=== PATIENT | female | born 1990 | race Caucasian/White ===

== ENCOUNTER → 2019-06-12 | Outpatient (CLI) | payer OTHER ==
[~2019-06-12] MED LIST: ALBU90OI61 INH; AZIT250 PO; CIPR500 PO; CITA20 PO; CLON.1; Catapres0.1 MG PO; Cyclobenzaprine5 MG PO; DOXY100T53 PO; HYDACE5 PO; LIDO5TP TOP; LITH300ER PO; LOPE2C PO; Lexapro 10 mg T10 MG PO; Lexapro 2020 MG PO; MONO-LINYAH1 EACH PO; MULTI-DAY PLUS1 EACH; OTC MEDS; POTCHL20ER PO; PRED10 PO; PROM25 PO; QUET25 PO; SULTRIDS PO; Verotin-Gr Cap1 EACH PO; [UNRECOGNIZED DRUG - OTHER] PO
[2019-06-18 23:06] LABS: CHLAMYDIA BY NAA Negative (Negative); GONOCOCCUS BY NAA Negative (Negative); HPV 16 Negative (Negative); HPV 18 Negative (Negative); HPV OTHER HR TYPES Negative (Negative); TRICH VAG BY NAA Negative (Negative)
== END | disposition home or self-care (01) ==
LOC: LAB 10:00 → LAB SHORT 10:00
PROVIDERS: Obstetrics & Gynecology
DX: Z01.419 Encounter for gynecological examination (general) (routine) without abnormal findings (principal)
CPT/HCPCS: 87491; 87591; 87624; 87661; G0123

== ENCOUNTER → 2019-08-01 | Outpatient (CLI) | payer OTHER ==
[2019-08-01 18:19] LABS: Bilirubin, Urine Neg (Neg); Blood, Urine 4+ (Neg); Glucose Qualitative, Urine Neg (Neg); Ketones, Urine Neg (Neg); Leukocyte Esterase, Urine 1+ (Neg); Nitrite, Urine Neg (Neg); Protein, Urine Neg (Neg); Specific Gravity, Urine 1.005 (1.003-1.022); Urobilinogen, Urine NORM (Normal)
[2019-08-01 18:56] LABS: Appearance, Urine Clear (Clear); Color, Urine Yellow (P-Yellow)
[2019-08-01 19:11] LABS: Bacteria Few /hpf; Squamous Epithelial Cells Few /hpf (Few)
== END | disposition home or self-care (01) ==
LOC: LAB SHORT 16:03 → LAB 16:03
PROVIDERS: Family Medicine
DX: N39.0 Urinary tract infection, site not specified (principal)
CPT/HCPCS: 81001; 87077; 87086; 87186

== ENCOUNTER → 2020-04-23 | Outpatient (CLI) | payer OTHER ==
[2020-04-24 08:48] LABS: Candida species (DNA Probe) Negative (NEGATIVE); G. vaginalis (DNA Probe) Positive (NEGATIVE); T. vaginalis (DNA Probe) Negative (NEGATIVE)
== END | disposition home or self-care (01) ==
LOC: LAB 11:00 → LAB SHORT 11:00
PROVIDERS: Nurse Practitioner Family
DX: R35.0 Frequency of micturition (principal); N89.8 Other specified noninflammatory disorders of vagina
CPT/HCPCS: 87086; 87480; 87510; 87660

== ENCOUNTER → 2020-08-25 | Outpatient (CLI) | payer OTHER ==
[2020-08-26 09:49] LABS: Candida species (DNA Probe) Negative (NEGATIVE); G. vaginalis (DNA Probe) Negative (NEGATIVE); T. vaginalis (DNA Probe) Negative (NEGATIVE)
== END | disposition home or self-care (01) ==
LOC: LAB SHORT 13:29
PROVIDERS: Obstetrics & Gynecology
DX: N89.8 Other specified noninflammatory disorders of vagina (principal)
CPT/HCPCS: 87480; 87510; 87660

== ENCOUNTER → 2021-01-19 | Outpatient (CLI) | payer OTHER | LOC: LAB 17:59 → LAB SHORT 17:59 | DX: R30.0 Dysuria (principal); R10.2 Pelvic and perineal pain | CPT/HCPCS: 87086 ==

== ENCOUNTER 2021-04-07 12:26 | Day surgery (SDC) | payer OTHER ==
[~2021-04-07] VITALS: Ht 160 cm; Wt 77.0 kg
[2021-04-07] MEDS ORDERED: IBUP200 PO (13:00)
--- NOTE | 2021-04-07 14:04 | NUR ---
04/07/21 1404 Michelle Dawn ROHAN AREA PREPPED BY [facility].DX, ABDOMEN PREPPED BY [facility].BLANCA.
== END 2021-04-07 15:20 | disposition home or self-care (01) ==
LOC: ORSCSDS 12:26
PROVIDERS: Obstetrics & Gynecology
PROC: 0UT74ZZ Resection of Bilateral Fallopian Tubes, Percutaneous Endoscopic Approach (ICD-10-PCS; principal; 2021-04-07 13:30)
DX: Z30.2 Encounter for sterilization (principal); F17.210 Nicotine dependence, cigarettes, uncomplicated; K21.9 Gastro-esophageal reflux disease without esophagitis; J45.909 Unspecified asthma, uncomplicated; Z79.899 Other long term (current) drug therapy
CPT/HCPCS: 88302; J1100; J1885; J2250; J2405; J2704; J3010; J7120

== ENCOUNTER → 2021-04-28 | Outpatient (CLI) | payer OTHER ==
[~2021-04-28] MED LIST changes: +IBUP200 PO
[2021-04-28 18:43] LABS: Source, Urine Clean Catch
[2021-04-28 19:31] LABS: Appearance, Urine Clear (Clear); Bilirubin, Urine Neg (Neg); Blood, Urine Neg (Neg); Color, Urine Yellow (P-Yellow); Glucose Qualitative, Urine Neg (Neg); Ketones, Urine Neg (Neg); Leukocyte Esterase, Urine Neg (Neg); Nitrite, Urine Neg (Neg); Protein, Urine Neg (Neg); Urobilinogen, Urine NORM (Normal)
[2021-04-29 10:17] LABS: Candida species (DNA Probe) Negative (NEGATIVE); G. vaginalis (DNA Probe) Negative (NEGATIVE); T. vaginalis (DNA Probe) Negative (NEGATIVE)
== END | disposition home or self-care (01) ==
LOC: LAB 18:41 → LAB SHORT 18:41
PROVIDERS: Obstetrics & Gynecology
DX: N89.8 Other specified noninflammatory disorders of vagina (principal); R30.9 Painful micturition, unspecified
CPT/HCPCS: 81003; 87480; 87510; 87660

== ENCOUNTER 2021-09-15 11:01 | Emergency (ER) | payer OTHER ==
[~2021-09-15] VITALS: Ht 160 cm; Wt 72.6 kg
== END 2021-09-15 12:36 | disposition home or self-care (01) ==
LOC: ER 11:01
DX: J04.0 Acute laryngitis (principal); J02.8 Acute pharyngitis due to other specified organisms; F17.210 Nicotine dependence, cigarettes, uncomplicated; Z88.0 Allergy status to penicillin; Z88.2 Allergy status to sulfonamides; Z88.5 Allergy status to narcotic agent; Z88.6 Allergy status to analgesic agent; Z79.899 Other long term (current) drug therapy
CPT/HCPCS: 87430

== ENCOUNTER → 2021-11-02 | Outpatient (CLI) | payer OTHER | END | disposition home or self-care (01) | LOC: LAB 07:41 → LAB SHORT 07:41 | DX: D22.61 Melanocytic nevi of right upper limb, including shoulder (principal) | CPT/HCPCS: 88305 ==

== ENCOUNTER → 2021-11-25 | Outpatient (CLI) | payer OTHER | END | disposition home or self-care (01) | LOC: LAB SHORT 08:01 → PLD 08:01 | DX: D22.5 Melanocytic nevi of trunk (principal); D22.61 Melanocytic nevi of right upper limb, including shoulder; D22.71 Melanocytic nevi of right lower limb, including hip | CPT/HCPCS: 88305 ==

== ENCOUNTER 2022-03-15 06:16 | Emergency (ER) | payer OTHER ==
[~2022-03-15] VITALS: Ht 160 cm; Wt 76.7 kg
[2022-03-15] MEDS ORDERED: PRED20 PO (07:12)
== END 2022-03-15 07:47 | disposition home or self-care (01) ==
LOC: ER 06:16
DX: L50.0 Allergic urticaria (principal); T36.0X5A Adverse effect of penicillins, initial encounter; F17.210 Nicotine dependence, cigarettes, uncomplicated; Z88.2 Allergy status to sulfonamides; Z88.0 Allergy status to penicillin; Z88.6 Allergy status to analgesic agent; Z88.5 Allergy status to narcotic agent; Z79.899 Other long term (current) drug therapy
CPT/HCPCS: A9270; J7512

== ENCOUNTER 2023-11-11 17:50 | Emergency (ER) | payer OTHER ==
[~2023-11-11] VITALS: Ht 160 cm; Wt 81.7 kg
[~2023-11-11 17:50] MED LIST changes: +PRED20 PO
[2023-11-11 18:06] VITALS: BP 115/85
[2023-11-11] MEDS ORDERED: Ketorolac Tromethamine 30mg Vial IV ONE (18:25)
[2023-11-11] MEDS ORDERED: Droperidol 5 mg/2 ml Vial IV ONE (18:25)
== END 2023-11-11 19:40 | disposition home or self-care (01) ==
LOC: ER 17:50
DX: G43.009 Migraine without aura, not intractable, without status migrainosus (principal); F17.210 Nicotine dependence, cigarettes, uncomplicated; Z79.52 Long term (current) use of systemic steroids; Z79.899 Other long term (current) drug therapy; Z88.0 Allergy status to penicillin; Z88.2 Allergy status to sulfonamides; Z88.5 Allergy status to narcotic agent
CPT/HCPCS: 96374; 96375; 99283-25; J1790; J1885

== ENCOUNTER 2024-02-19 15:22 | Emergency (ER) | payer OTHER ==
[~2024-02-19] VITALS: Ht 160 cm; Wt 88.0 kg
[2024-02-19 15:28] VITALS: BP 152/92
[2024-02-19] MEDS ORDERED: Ketorolac Tromethamine 30mg Vial IM ONE (15:35)
[2024-02-19] MEDS ORDERED: CYCL10 PO (16:49)
[2024-02-19] MEDS ORDERED: Percocet 5-3251 EACH PO (16:49)
== END 2024-02-19 17:04 | disposition home or self-care (01) ==
LOC: ER 15:22
DX: M54.50 Low back pain, unspecified (principal); F17.210 Nicotine dependence, cigarettes, uncomplicated; Z79.52 Long term (current) use of systemic steroids; Z79.899 Other long term (current) drug therapy; Z88.0 Allergy status to penicillin; Z88.2 Allergy status to sulfonamides; Z88.5 Allergy status to narcotic agent
CPT/HCPCS: 72100; 96372; 99283-25; J1885

== ENCOUNTER → 2024-06-25 | Outpatient (CLI) | payer OTHER ==
[~2024-06-25] MED LIST changes: +CYCL10 PO; +Percocet 5-3251 EACH PO
== END ==
LOC: LAB SHORT 08:32 → LAB 08:32
DX: K29.00 Acute gastritis without bleeding (principal)
CPT/HCPCS: 87338

== ENCOUNTER → 2024-09-05 | Outpatient (CLI) | payer OTHER ==
[2024-09-05 16:59] LABS: Bacterial Vaginosis PCR Negative (NEGATIVE); Candida Group, PCR NOT DETECTED (NOT DETECT); Candida glabrata-krusei, PCR NOT DETECTED (NOT DETECT)
== END | disposition home or self-care (01) ==
LOC: LAB 15:45 → LAB SHORT 15:45
PROVIDERS: Obstetrics & Gynecology
DX: N76.0 Acute vaginitis (principal); R30.9 Painful micturition, unspecified
CPT/HCPCS: 81001; 81515; 87077; 87086; 87186